=== PATIENT | female | born 1970 | race African-American/Black ===

== ENCOUNTER 2019-04-12 16:24 | Emergency (ER) | payer OTHER ==
[~2019-04-12] VITALS: Ht 162.6 cm; Wt 78.9 kg
[2019-04-12] MEDS ORDERED: IV NORMAL SALINE 1000ML BAG 1,000 ML IV SCH (16:35)
--- NOTE | 2019-04-12 16:43 | PHYS DOC ---
Adult General Chief Complaint Chief Complaint: RAPID HEART RATE HPI HPI Patient is a 48 year old female who presents with complaint of fast heartbeat. Patient states she was [place] in [place] and felt hot and dizzy with nausea, hand numbness, generalized weakness and near syncopal episode. Patient states the EMS with Indocin and check her heart rate and told her that she had heart rate of 160s and patient decided to come pupil today emergency room. Patient denies chest pain, history of the same problem, vomiting and diarrhea, urinary symptom, . Patient had heart rate of 120s at arri laura to ER. Review of Systems Review of Systems Constitutional: Denies fever or chills [] Eyes: Denies change in visual acuity, redness, or eye pain [] HENT: Denies nasal congestion or sore throat [] Respiratory: Denies cough, reports shortness of breath [] Cardiovascular: No additional information not addressed in HPI [] GI: Denies abdominal pain, nausea, vomiting, bloody stools or diarrhea [] : Denies dysuria or hematuria [] Musculoskeletal: Denies back pain or joint pain [] Integument: Denies rash or skin lesions [] Neurologic: Reports headache, sensory changes [] Endocrine: Denies polyuria or polydipsia [] All other systems were reviewed and found to be within normal limits, except as documented in this note. Current Medications Current Medications Current Medications Medications (Trade) Dose Ordered Sig/[facility] Start Time Stop Time Status Last Admin Dose Admin Magnesium Oxide (Magnesium Oxide) 400 mg DAILY 04/12/19 18:00 04/12/19 18:26 DC 04/12/19 17:50 400 MG Sodium Chloride 1,000 ml @ 1,000 mls/hr Q1H 04/12/19 16:35 04/12/19 17:36 DC 04/12/19 16:53 1,000 MLS/HR Allergies Allergies Allergies Coded Allergies Type Severity Reaction Last Updated Verified No Known Drug Allergies 04/12/19 No Physical Exam Physical Exam Constitutional: Well developed, well nourished, mild distress, non-toxic appearance. [] HENT: Normocephalic, atraumatic. Eyes: PERRLA, EOMI, conjunctiva normal, no discharge. [] Neck: Normal range of motion, no tenderness, supple, no stridor. [] Cardiovascular: Tachycardia, no murmur [] Lungs & Thorax: Bilateral breath sounds clear to auscultation [] Abdomen: Bowel sounds normal, soft, no tenderness, no masses, no pulsatile masses. [] Skin: Warm, dry, no erythema, no rash. [] Back: No tenderness, no CVA tenderness. [] Extremities: No tenderness, no cyanosis, no clubbing, ROM intact, no edema. [] Neurologic: Alert and oriented X 3, no focal deficits noted. [] Psychologic: Affect normal, judgement normal, mood normal. [] Current Patient Data Vital Signs Vital Signs Date Time Temp Pulse Resp B/P (MAP) Pulse Ox O2 Delivery O2 Flow Rate FiO2 04/12/19 18:20 80 18 124/68 (86) 99 04/12/19 16:33 97.6 97.6 Lab Values Laboratory Tests Test 04/12/19 16:40 White Blood Count 7.9 x10^3/uL (4.0-11.0) Red Blood Count 4.82 x10^6/uL (3.50-5.40) Hemoglobin 12.0 g/dL (12.0-15.5) Hematocrit 37.0 % (36.0-47.0) Mean Corpuscular Volume 77 fL (79-100) L Mean Corpuscular Hemoglobin 25 pg (25-35) Mean Corpuscular Hemoglobin Concent 33 g/dL (31-37) Red Cell Distribution Width 13.8 % (11.5-14.5) Platelet Count 222 x10^3/uL (140-400) Neutrophils (%) (Auto) 66 % (31-73) Lymphocytes (%) (Auto) 24 % (24-48) Monocytes (%) (Auto) 8 % (0-9) Eosinophils (%) (Auto) 1 % (0-3) Basophils (%) (Auto) 0 % (0-3) Neutrophils # (Auto) 5.2 x10^3/uL (1.8-7.7) Lymphocytes # (Auto) 1.9 x10^3/uL (1.0-4.8) Monocytes # (Auto) 0.7 x10^3/uL (0.0-1.1) Eosinophils # (Auto) 0.1 x10^3/uL (0.0-0.7) Basophils # (Auto) 0.0 x10^3/uL (0.0-0.2) Sodium Level 141 mmol/L (136-145) Potassium Level 3.8 mmol/L (3.5-5.1) Chloride Level 104 mmol/L (98-107) Carbon Dioxide Level 25 mmol/L (21-32) Anion Gap 12 (6-14) Blood Urea Nitrogen 17 mg/dL (7-20) Creatinine 1.2 mg/dL (0.6-1.0) H Estimated GFR (Cockcroft-Gault) 57.8 BUN/Creatinine Ratio 14 (6-20) Glucose Level 95 mg/dL (70-99) Calcium Level 10.6 mg/dL (8.5-10.1) H Magnesium Level 1.5 mg/dL (1.8-2.4) L Total Bilirubin 0.7 mg/dL (0.2-1.0) Aspartate Amino Transferase (AST) 29 U/L (15-37) Alanine Aminotransferase (ALT) 24 U/L (14-59) Alkaline Phosphatase 97 U/L (46-116) Creatine Kinase 266 U/L (26-192) H Troponin I Quantitative < 0.017 ng/mL (0.000-0.055) IB-Qze-L-Type Natriuretic Peptide 7 pg/mL (0-124) Total Protein 9.0 g/dL (6.4-8.2) H Albumin 4.0 g/dL (3.4-5.0) Albumin/Globulin Ratio 0.8 (1.0-1.7) L Laboratory Tests 04/12/19 16:40 Laboratory Tests 04/12/19 16:40 EKG EKG EKG interpreted by me. EKG at 1639 showed normal sinus rhythm at rate of 98, left fourth axis, poor R-wave progress in anteroseptal leads, no acute ST and T- wave elevation Radiology/Procedures Radiology/Procedures [facility] [address] [place] [address] IMAGING REPORT Signed PATIENT: KANDY PERDOMO ACCOUNT: [id number] : 1970 LOCATION: ER AGE: 48 SEX: F EXAM STATUS: DEP ER ORD. PHYSICIAN: LINDA DORANTES MD REASON: PROCEDURE: PORTABLE CHEST 1V Single view chest dated 04/12/2019: No comparison available. Clinical Indication: Dizziness. Findings: Single upright portable exam of the chest was performed. Heart size and mediastinal contours are within normal limits given technique. The lungs are clear without evidence of focal consolidation. Vascular interstitium is within normal limits. Impression:: Negative portable chest. Electronically signed by: Saurabh Tijerina MD (04/12/2019 6:59 PM) [facility] DICTATED and SIGNED BY: SAURABH TIJERINA MD DATE: 04/12/19 7523 Course & Med Decision Making Course & Med Decision Making Pertinent Labs and Imaging studies reviewed. (See chart for details) Evaluation of patient in ER showed 48-year-old female patient was developed after walking outside for several hours. Patient had heart rate of 160 at the scene with heart rate of 120s at arrival to ER that gradually decreased to 90s and 80s. Patient treated with IV fluids with improvement of her condition. Labs showed mild elevation of creatinine and CK and low magnesium. Patient had oral meclizine ER and advised to take high magnesium diet. I've spoken with the patient and/or caregivers. I've explained the patient's condition, diagnosis and treatment plan based on information available to me at this time. I've answered the patient's and/or caregivers questions and addressed any concerns. The patient and/or caregivers have a good understanding the patient's diagnosis, condition and treatment plan as can be expected at this point. Vital signs have been stabilized. The patient's condition is stable for discharge from the emergency department. The patient will pursue further outpatient evaluation with her primary care provider or other designated consulting physician as outlined in the discharge instructions. Patient and/or caregivers are agreeable to this plan of care and follow-up instructions have been explained in detail. The patient and/or caregivers have received these instructions in written format and expressed und erstanding of these discharge instructions. The patient and her caregivers are aware that if any significant change in condition or worsening of symptoms should prompt him to immediately return to this of the closest emergency department. If an emergent department is not readily available I would e ncourage him to call 911. Theo Disclaimer Theo Disclaimer This electronic medical record was generated, in whole or in part, using a voice recognition dictation system. Departure Departure Impression: Primary Impression: Heat exhaustion Additional Impressions: Dehydration Hypomagnesemia Tachycardia Disposition: 01 HOME, SELF-CARE (1800) Condition: IMPROVED Patient Instructions: Dehydration, Adult, Heat Disorders, Hypomagnesemia Additional Instructions: Drink plenty of liquids Follow-up with your primary care physician in 3-5 days Return to ER if not getting better Problem Qualifiers Primary Impression: Heat exhaustion Encounter type: initial encounter Qualified Codes: T67.5XXA - Heat exhaustion, unspecified, initial encounter LINDA DORANTES MD Apr 12, 2019 16:43
[2019-04-12 17:03] LABS: BASO % 0 % (0-3); EOS # 0.1 x10^3/uL (0.0-0.7); EOS % 1 % (0-3); LYMPH # 1.9 x10^3/uL (1.0-4.8); LYMPH % 24 % (24-48); MEAN CORPUSCULAR HEMOGLOBIN 25 pg (25-35); MEAN CORPUSCULAR HGB CONC 33 g/dL (31-37); MEAN CORPUSCULAR VOLUME 77 fL (79-100); MONO # 0.7 x10^3/uL (0.0-1.1); MONO % 8 % (0-9); NEUT # 5.2 x10^3/uL (1.8-7.7); NEUT % 66 % (31-73); PLATELET COUNT 222 x10^3/uL (140-400); RED BLOOD COUNT 4.82 x10^6/uL (3.50-5.40); RED CELL DISTRIBUTION WIDTH 13.8 % (11.5-14.5); WHITE BLOOD COUNT 7.9 x10^3/uL (4.0-11.0)
[2019-04-12 17:08] LABS: CALCIUM 10.6 mg/dL (8.5-10.1); CREATININE 1.2 mg/dL (0.6-1.0); GFR 57.8; POTASSIUM 3.8 mmol/L (3.5-5.1)
[2019-04-12 17:11] LABS: ALBUMIN/GLOBULIN RATIO 0.8 (1.0-1.7); MAGNESIUM 1.5 mg/dL (1.8-2.4); TOTAL BILIRUBIN 0.7 mg/dL (0.2-1.0)
[2019-04-12] MEDS ORDERED: MAGNESIUM OXIDE 400 MG TABLET PO SCH (18:00)
[2019-04-12 18:20] VITALS: BP 124/68
--- NOTE | 2019-04-12 19:02 | RAD ---
Single view chest dated 04/12/2019: No comparison available. Clinical Indication: Dizziness. Findings: Single upright portable exam of the chest was performed. Heart size and mediastinal contours are within normal limits given technique. The lungs are clear without evidence of focal consolidation. Vascular interstitium is within normal limits. Impression:: Negative portable chest. Electronically signed by: Saurabh Tijerina MD (04/12/2019 6:59 PM) [facility]
--- NOTE | 2019-04-13 07:54 | EKG ---
[facility] [address] [place] [address] Test Date: 2019-04-12 Test Time: 16:39:23 Pat Name: KANDY PERDOMO Department: Room: Gender: F Needle Leader: : 1970 Requested By: LINDA DORANTES Order Number: [id number] Reading MD: Measurements Intervals Loco Rate: 97 P: 40 AL: 148 QRS: -4 QRSD: 68 T: 20 QT: 320 QTc: 410 Interpretive Statements SINUS RHYTHM LEFTWARD AXIS QRS(T) CONTOUR ABNORMALITY CONSISTENT WITH ANTEROSEPTAL INFARCT AGE UNDETERMINED ABNORMAL ECG No previous ECG available for comparison
== END 2019-04-12 18:26 | disposition home or self-care (01) ==
LOC: ER 16:24
DX: T67.5XXA Heat exhaustion, unspecified, initial encounter (principal); R00.0 Tachycardia, unspecified; E86.0 Dehydration; E83.42 Hypomagnesemia; R42 Dizziness and giddiness; R11.0 Nausea; R20.0 Anesthesia of skin; R55 Syncope and collapse; R53.1 Weakness; R51 Headache; X58.XXXA Exposure to other specified factors, initial encounter; Y93.89 Activity, other specified; Y92.89 Other specified places as the place of occurrence of the external cause; Y99.8 Other external cause status
CPT/HCPCS: 36415; 71045; 80053; 82550; 83735; 83880; 84484; 85025; 93005; 96360; 99285; J7030